=== PATIENT | male | born 2000 | race Caucasian/White ===

== ENCOUNTER 2021-09-01 17:37 | Emergency (ER) | payer SELFPAY ==
[2021-09-01 18:18] VITALS: BP 132/77; PULSE 78; RESP 20; TEMP 36.6; O2SAT 99
--- NOTE | 2021-09-01 18:25 | ED.URI ---
HPI - URI/Sore Throat General Chief Complaint: Upper Respiratory Infection Stated Complaint: throat pain Source: patient Mode of arrival: ambulatory History of Present Illness HPI Narrative: This is a 20-year-old gentleman that presents with a 2 day history of sore throat with nasal congestion and postnasal drip with no fever or chills does have tender submandibular gland with no shortness of breath no nausea vomiting. MD elicited complaint: sore throat Review of Systems Review of Systems: All systems reviewed & are unremarkable except as noted in HPI and below PMFSH Past Medical History Medical History Patient denies medical problems Exam Const: General: no acute distress Orientation/consciousness: patient oriented x3 HENMT: Head: normal to inspection Other: erythematous tonsils Eyes: Conjunctivae: conjunctivae normal Neck: Neck: normal visual inspection and lymphadenopathy Other: tender submandibular gland Chest: Chest palpation & inspection: normal inspection of the chest Resp: Effort & Inspection: normal respiratory effort Auscultation: clear to auscultation bilaterally GI: GI Palp: Yes Soft to palpation Urinary Catheter: Urinary Catheter: patent and draining Skin: General skin exam: normal color Rashes: no rashes Neuro: General: patient oriented x3 Extrem: General: normal to inspection Psych: Mental Status: mental status grossly normal Affect: normal affect Course Course Emergency Course: patient had strep performed which was negative and reviewed with patient. Vital Signs Vital signs: Vital Signs Temperature 36.6 C 09/01/21 18:18 Pulse Rate 78 09/01/21 18:18 Respiratory Rate 20 09/01/21 18:18 Blood Pressure 132/77 09/01/21 18:18 Pulse Oximetry 99 09/01/21 18:18 Temperature 36.6 C 09/01/21 18:18 Pulse Rate 78 09/01/21 18:18 Respiratory Rate 20 09/01/21 18:18 Blood Pressure 132/77 09/01/21 18:18 Pulse Oximetry 99 09/01/21 18:18 MDM - URI/Sore Throat Lab Data Labs: Lab Results 09/01/21 Range/Units 18:20 Grp A Beta Strep Ag Negative Critical Care Time Critical Care Time Critical Care Time: No Discharge Plan Discharge Clinical Impression: Pharyngitis Qualifiers: Pharyngitis/tonsillitis etiology: unspecified etiology Qualified Code(s): J02.9 - Acute pharyngitis, unspecified Patient Disposition: Home, Self-Care Condition: Stable Instructions: Antibiotic Form, Pharyngitis (ED) Additional Instructions: take medicine as prescribed and follow-up primary care physician if symptoms persist or worsen. Prescriptions: New azithromycin [Zithromax Z-Marino] 250 mg tablet See Rx Instructions .ROUTE .COMPLEX Qty: 6 RF: 0 Follow-up/Referrals: Derian,Maycol Nicholas MD [Primary Care Provider] - Time of Disposition: 18:29
[2021-09-01 18:35] VITALS: PULSE 74; RESP 20; O2SAT 100
== END 2021-09-01 18:35 | disposition home or self-care (01) ==
PROVIDERS: Emergency Provider Emergency Medicine; PCP Family Medicine
DX: J02.9 Acute pharyngitis, unspecified (principal)
CPT/HCPCS: 87081; 87880; 99283

== ENCOUNTER 2022-10-27 10:18 | Emergency (ER) | payer SELFPAY ==
[2022-10-27 10:18] VITALS: BP 146/86; PULSE 84; RESP 16; TEMP 37.3; O2SAT 98
--- NOTE | 2022-10-27 10:32 | ED.URI ---
HPI - URI/Sore Throat General Chief Complaint: Upper Respiratory Infection Stated Complaint: sore throat Time Seen by Provider: 10/27/22 10:31 Source: patient and RN notes reviewed Mode of arrival: ambulatory Limitations: no limitations History of Present Illness MD elicited complaint: fever (Subjective), cough and sore throat Onset (ago): day(s) (1) Associated symptoms: myalgias Related Data Home Medications Medication Instructions Recorded Confirmed No Home Medications 10/27/22 10/27/22 Allergies Allergy/AdvReac Type Severity Reaction Status Date / Time No Known Allergies Allergy Verified 10/27/22 10:25 [facility] Past Medical History Medical History (Updated 10/27/22 @ 11:32 by Mike Downey MD) Patient denies medical problems Surgical History Surgical History (Updated 10/27/22 @ 11:07 by Mike Downey MD) No pertinent past surgical history Exam Const: General: healthy appearing, no acute distress and alert Nutritional Appearance: well nourished Orientation/consciousness: patient oriented x3 Limitations: no limitations HENMT: Head: normal to inspection Ears: external ears normal Face/Nose/Sinus: Normal external nose present Face and sinus: normal facial exam Mouth: Yes moist mucous membranes abnormal Throat: uvula midline and posterior oropharynx abnormal edema and erythema; no exudates Eyes: Conjunctivae: conjunctivae normal Pupils: Equal, round and reactive pupils present EOM: EOMs intact bilaterally Neck: Neck: normal visual inspection Resp: Effort & Inspection: normal respiratory effort Auscultation: clear to auscultation bilaterally Cardio: Rate: regular rate Rhythm: regular rhythm GI: GI Palp: Yes Soft to palpation and No Tenderness to palpation present (GI) Auscultation: normal bowel sounds Back/Spine/Pelvis: Cervical Spine: cervical ROM normal Thoracic/Lumbar Spine: thoraco-lumbar ROM normal Skin: General skin exam: normal color Rashes: no rashes Neuro: General: patient oriented x3, moves all extremities, no focal motor deficits and CN's II-XI intact bilaterally Speech: normal speech Gait exam (Neuro): Normal gait present Extrem: General: normal to inspection and no clubbing, cyanosis or edema Psych: Mental Status: mental status grossly normal Affect: normal affect Attitude: cooperative Course Vital Signs Vital signs: Vital Signs Temperature 37.3 C 10/27/22 10:18 Pulse Rate 84 10/27/22 10:18 Respiratory Rate 16 10/27/22 10:18 Blood Pressure 146/86 H 10/27/22 10:18 Pulse Oximetry 98 10/27/22 10:18 Oxygen Delivery Room Air 10/27/22 10:18 Temperature 37.3 C 10/27/22 10:18 Pulse Rate 84 10/27/22 10:18 Respiratory Rate 16 10/27/22 10:18 Blood Pressure 146/86 H 10/27/22 10:18 Pulse Oximetry 98 10/27/22 10:18 Oxygen Delivery Room Air 10/27/22 10:18 MDM - URI/Sore Throat Differential Diagnosis Differential diagnosis: Likely upper respiratory infection, sinusitis, viral infection, influenza, pharyngitis and other ( COVID, strep pharyngitis) Lab Data Attestation: I reviewed the patient's lab results. Labs: Lab Results 10/27/22 Range/Units 10:38 Influenza A (RT-PCR) Negative (Negative) Influenza B (RT-PCR) Negative (Negative) SARS-CoV-2 RNA (RT-PCR) Negative (Negative) Group A Strep (PCR) Not detected (Negative) Discharge Plan Discharge Clinical Impression: Pharyngitis Qualifiers: Pharyngitis/tonsillitis etiology: other specified organisms Qualified Code(s): J02.8 - Acute pharyngitis due to other specified organisms Patient Disposition: Home, Self-Care Condition: Stable Instructions: Pharyngitis (ED) Additional Instructions: can use [id number] throat spray as needed. Tylenol and/or Motrin for body aches and fever. Prescriptions: No Action No Home Medications Follow-up/Referrals: UNKNOWN,DOCTOR [Primary Care Provider] - Stand Alone Form
[2022-10-27 11:11] LABS: Strep Group A RT-PCR NOT DETECTED (Negative)
[2022-10-27 11:21] LABS: Influenza A QL RT-PCR Negative (Negative); Influenza B QL RT-PCR Negative (Negative); SARS-CoV-2 RNA PCR Negative (Negative)
[2022-10-27 11:35] VITALS: BP 130/78; PULSE 88; RESP 16; TEMP 36.1; O2SAT 98
== END 2022-10-27 11:35 | disposition home or self-care (01) ==
PROVIDERS: Emergency Provider Emergency Medicine
DX: J02.8 Acute pharyngitis due to other specified organisms (principal); Z20.822 Contact with and (suspected) exposure to COVID-19
CPT/HCPCS: 87502; 87635; 87651; 99283; U0005

== ENCOUNTER 2024-01-04 13:15 | Emergency (ER) | payer SELFPAY ==
[2024-01-04 13:15] VITALS: BP 165/98; PULSE 61; RESP 18; TEMP 36.3; O2SAT 99
--- NOTE | 2024-01-04 13:21 | ED.DENTAL ---
HPI - Dental/Oral General Chief complaint: Dental/Oral Stated complaint: DENTAL PAIN Time Seen by Provider: 01/04/24 13:17 Source: patient Mode of arrival: ambulatory Limitations: no limitations History of Present Illness HPI Narrative: patient is a 23-year-old male with right lower jaw pain /dental pain for the past few days. He has a cracked tooth in the back right jaw. MD Complaint: tooth pain and tooth injury Location: Tooth # ( Thirty-two) Onset (ago): day(s) (3) Duration: constant Severity: moderate Severity scale (1-10): 5 Relieving factors: nothing Exacerbating factors: chewing, cold, heat and drinking fluids Context: history of dental caries Treatment prior to arrival: none Related Data Allergies Allergy/AdvReac Type Severity Reaction Status Date / Time No Known Allergies Allergy Verified 10/27/22 10:25 Review of Systems Review of Systems: All systems reviewed & are unremarkable except as noted in HPI and below Constitutional: Constitutional: Reports no additional constitutional complaints Eyes: Eyes: Reports no additional eye complaints ENT: Reports system reviewed and no additional complaints, except as documented Cardiovascular: Cardiovascular: Reports no additional cardiovascular complaints Respiratory: Respiratory: Reports no additional respiratory complaints Gastrointestinal: Gastrointestinal: Reports no additional gastrointestinal complaints Genitourinary: Genitourinary: Reports no additional male genitourinary complaints Musculoskeletal: Musculoskeletal: Reports no additional musculoskeletal complaints Integumentary/Breasts: Skin/Breast: Reports system reviewed and no additional complaints, except as docu Neurologic: Reports system reviewed and no additional complaints, except as documented Psychiatric: Psychiatric: Reports no additional psychiatric complaints Endocrine: Endocrine: Reports no additional endocrine complaints Hematologic/Lymphatic: Hematologic/Lymphatic: Reports no additional hematologic/lymphatic complaints Allergic/Immunologic: Allergic/Immunologic: Reports no additional allergic/immunologic complaints PMFSH Past Medical History Medical History Patient denies medical problems Surgical History Surgical History No pertinent past surgical history Exam Const: General: healthy appearing Nutritional Appearance: well nourished Orientation/consciousness: patient oriented x3 HENMT: Head: normal to inspection Ears: external ears normal Face/Nose/Sinus: Normal external nose present Other: tooth number 32 has 3/4 cracked and missing of the top of the tooth with some decay and no abscess Eyes: Conjunctivae: conjunctivae normal Pupils: Equal, round and reactive pupils present EOM: EOMs intact bilaterally Neck: Neck: normal visual inspection Chest: Chest palpation & inspection: normal inspection of the chest Resp: Effort & Inspection: normal respiratory effort and not labored Auscultation: clear to auscultation bilaterally Cardio: Rate: regular rate Rhythm: regular rhythm Heart sounds: no murmurs GI: Inspection: non-distended Auscultation: normal bowel sounds and bowel sounds present : General: Yes bladder normal to palpation Back/Spine/Pelvis: Back: no CVA tenderness Skin: General skin exam: normal color Rashes: no rashes Wounds: no wounds Neuro: General: patient oriented x3 Cranial nerves: Yes Nystagmus not present Speech: normal speech Extrem: General: normal to inspection Psych: Mental Status: mental status grossly normal Affect: normal affect Attitude: cooperative MDM - Dental/Oral MDM Narrative Medical decision making narrative: patient is a 23-year-old male with dental pain and right lower jaw pain with a fractured tooth. We will do Augmentin and Ultram. He did not want Toradol shot. Discharge Plan Discharge C
== END 2024-01-04 13:45 | disposition home or self-care (01) ==
LOC: CHSED 13:43
PROVIDERS: Emergency Provider Emergency Medicine; PCP Family Medicine
DX: R68.84 Jaw pain (principal)
CPT/HCPCS: 99283

== ENCOUNTER 2024-06-28 13:06 | Emergency (ER) | payer BC, SELFPAY ==
[2024-06-28 13:07] VITALS: BP 142/84; PULSE 99; RESP 18; TEMP 36.8; O2SAT 98
--- NOTE | 2024-06-28 13:09 | ED_ITS ---
HPI - URI/Sore Throat General Chief Complaint: Upper Respiratory Infection Stated Complaint: sore throat Time Seen by Provider: 06/28/24 13:08 Source: patient Mode of arrival: ambulatory Limitations: no limitations History of Present Illness HPI Narrative: 23-year-old nose significant past medical history presents to the ED with a 1 day history of -- sore throat/ odynophagia. No fever or chills. No sinus pain. No cough or sputum production MD elicited complaint: sore throat Onset (ago): day(s) ( 1 day) Consistency: constant Severity: mild Description of mucous: clear Able to tolerate fluids by mouth: Yes Exacerbating factors: nothing Relieving factors: nothing Associated symptoms: denies other symptoms Related Data Home Medications ?Medication ?Instructions ?Recorded ?Confirmed ?Last Taken ?Type No Home Medications 06/28/24 06/28/24 Unknown History Allergies Allergy/AdvReac Type Severity Reaction Status Date / Time No Known Allergies Allergy Verified 06/28/24 13:32 Review of Systems Review of Systems: All systems reviewed & are unremarkable except as noted in HPI and below PMFSH Past Medical History Medical History Patient denies medical problems Surgical History Surgical History No pertinent past surgical history Exam Narrative: afebrile oxygen saturation of 98% on room air Const: General: healthy appearing and no acute distress Nutritional Appearance: well nourished Orientation/consciousness: patient oriented x3 Limitations: no limitations HENMT: Head: normal to inspection Ears: external ears normal Face/Nose/Sinus: Normal external nose present Face and sinus: normal facial exam Mouth: Yes Normal oral and palatal mucosa present Throat: posterior oropharynx normal ( pharyngeal erythema) Eyes: Conjunctivae: conjunctivae normal Pupils: Equal, round and reactive pupils present EOM: EOMs intact bilaterally Direct Ophthalmoscopy: no photophobia Neck: Neck: normal visual inspection, no lymphadenopathy and no meningeal signs Chest: Chest palpation & inspection: normal inspection of the chest Resp: Effort & Inspection: normal respiratory effort Auscultation: clear to auscultation bilaterally Cardio: Rate: regular rate Rhythm: regular rhythm GI: GI Palp: Yes Soft to palpation Auscultation: normal bowel sounds : General: Yes no CVA tenderness Back/Spine/Pelvis: Back: no CVA tenderness Skin: General skin exam: normal color Rashes: no rashes Wounds: no wounds Neuro: General: patient oriented x3, moves all extremities, no meningeal signs, no focal motor deficits and CN's II-XI intact bilaterally Cranial nerves: Yes Nystagmus not present Speech: normal speech Gait exam (Neuro): Normal gait present Extrem: General: normal to inspection and no clubbing, cyanosis or edema Psych: Mental Status: mental status grossly normal Affect: normal affect Attitude: cooperative Course Course Emergency Course: pharyngitis-- Patient tested negative for influenza /RSV / COVID/ strep. Vital Signs Vital signs: Vital Signs Temperature 36.8 C 06/28/24 13:07 Pulse Rate 99 06/28/24 13:07 Respiratory Rate 18 06/28/24 13:07 Blood Pressure 142/84 H 06/28/24 13:07 Pulse Oximetry 98 06/28/24 13:07 Oxygen Delivery Room Air 06/28/24 13:07 Temperature 36.8 C 06/28/24 13:07 Pulse Rate 99 06/28/24 13:07 Respiratory Rate 18 06/28/24 13:07 Blood Pressure 142/84 H 06/28/24 13:07 Pulse Oximetry 98 06/28/24 13:07 Oxygen Delivery Room Air 06/28/24 13:07 MDM - URI/Sore Throat MDM Narrative Medical decision making narrative: Pharyngitis Differential Diagnosis Differential diagnosis: Likely upper respiratory infection Lab Data Attestation: I reviewed the patient's lab results. Labs: Lab Results 06/28/24 Range/Units 13:13 Influenza A (RT-PCR) Negative (Negative) Influenza B (RT-PCR) Negative (Negative) RSV (RT-PCR) Negative (Negative) SARS-CoV-2 RNA (RT-PCR) Negative (Negative) Group A Strep (PCR) Not detected (Negative) Discharge Plan Discharge Clinical Impression: Pharyngitis Patient Disposition: Home, Self-Care Condition: Stable Instructions: Antibiotic Form, Pharyngitis (ED) Patient Language: Upper Sorbian Prescriptions: No Action No Home Medications Follow-up/Referrals: Derian,Maycol Nicholas MD [Primary Care Provider] - Time of Disposition: 14:05
--- NOTE | 2024-06-28 13:36 | PC.NURSE ---
Covid culture sent to lab at 13:18
[2024-06-28 13:49] LABS: Strep Group A RT-PCR NOT DETECTED (Negative)
[2024-06-28 13:57] LABS: SARS-CoV-2 RNA PCR Negative (Negative)
[2024-06-28 13:58] LABS: Influenza A QL RT-PCR Negative (Negative); Influenza B QL RT-PCR Negative (Negative); RSV RNA, RT-PCR Negative (Negative)
[2024-06-28 14:12] VITALS: BP 132/86; PULSE 92; RESP 18; TEMP 36.9; O2SAT 98
== END 2024-06-28 14:20 | disposition home or self-care (01) ==
PROVIDERS: Emergency Provider Internal Medicine Critical Care Medicine; PCP Family Medicine
DX: J02.9 Acute pharyngitis, unspecified (principal); Z20.822 Contact with and (suspected) exposure to COVID-19
CPT/HCPCS: 87637; 87651; 99283

== ENCOUNTER 2024-08-28 16:32 | Emergency (ER) | payer BC, SELFPAY ==
--- NOTE | 2024-08-28 16:36 | ED_ITS ---
HPI - URI/Sore Throat General Chief Complaint: Upper Respiratory Infection Stated Complaint: sore throat Time Seen by Provider: 08/28/24 16:35 Source: patient Mode of arrival: ambulatory Limitations: no limitations History of Present Illness HPI Narrative: Patient is a 23-year-old male with no significant past medical history that presents today for sore throat. Patient has had a sore throat for the last few days now his says is got worse. He has a minor cough of [place] just a sore throat it hurts to swallow. He also has a erythematous throat with white spots in the back of throat. MD elicited complaint: sore throat Onset (ago): day(s) Consistency: constant Severity: moderate Able to tolerate fluids by mouth: Yes Exacerbating factors: swallowing Relieving factors: nothing Associated symptoms: denies other symptoms Treatments prior to arrival: none Related Data Allergies Allergy/AdvReac Type Severity Reaction Status Date / Time No Known Allergies Allergy Verified 08/28/24 16:40 Review of Systems Review of Systems: All systems reviewed & are unremarkable except as noted in HPI and below Constitutional: Constitutional: Reports no additional constitutional complaints Eyes: Eyes: Reports no additional eye complaints ENT: Reports system reviewed and no additional complaints, except as documented Cardiovascular: Cardiovascular: Reports no additional cardiovascular complaints Respiratory: Respiratory: Reports no additional respiratory complaints Gastrointestinal: Gastrointestinal: Reports no additional gastrointestinal complaints Genitourinary: Genitourinary: Reports no additional male genitourinary complaints Musculoskeletal: Musculoskeletal: Reports no additional musculoskeletal complaints Integumentary/Breasts: Skin/Breast: Reports system reviewed and no additional complaints, except as docu Neurologic: Reports system reviewed and no additional complaints, except as documented Psychiatric: Psychiatric: Reports no additional psychiatric complaints Endocrine: Endocrine: Reports no additional endocrine complaints Hematologic/Lymphatic: Hematologic/Lymphatic: Reports no additional hematologic/lymphatic complaints Allergic/Immunologic: Allergic/Immunologic: Reports no additional allergic/immunologic complaints PMFSH Past Medical History Medical History Patient denies medical problems Surgical History Surgical History No pertinent past surgical history Exam Const: General: healthy appearing Nutritional Appearance: well nourished Orientation/consciousness: patient oriented x3 HENMT: Head: normal to inspection Ears: external ears normal Face/Nose/Sinus: Normal external nose present Face and sinus: normal facial exam Mouth: Yes Normal oral and palatal mucosa present Eyes: Conjunctivae: conjunctivae normal Pupils: Equal, round and reactive pupils present EOM: EOMs intact bilaterally Neck: Neck: normal visual inspection Chest: Chest palpation & inspection: normal inspection of the chest Resp: Effort & Inspection: normal respiratory effort Auscultation: clear to auscultation bilaterally Cardio: Rate: regular rate Rhythm: regular rhythm Heart sounds: Murmur heart sound present GI: GI Palp: Yes Soft to palpation Auscultation: normal bowel sounds Back/Spine/Pelvis: Back: no CVA tenderness Skin: General skin exam: normal color Rashes: no rashes Wounds: no wounds Neuro: General: patient oriented x3 Cranial nerves: Yes Nystagmus not present Speech: normal speech Gait exam (Neuro): Normal gait present Extrem: General: normal to inspection Psych: Mental Status: mental status grossly normal Affect: normal affect Attitude: cooperative Course Vital Signs Vital signs: Vital Signs Temperature 97.8 F 08/28/24 16:40 Pulse Rate 77 08/28/24 16:40 Respiratory Rate 17 08/28/24 16:40 Blood Pressure 125/76 08/28/24 16:40 Pulse Oximetry 98 08/28/24 16:40 Oxygen Delivery Room Air 08/28/24 16:40 Temperature 97.8 F 08/28/24 16:40 Pulse Rate 77 08/28/24 16:40 Respiratory Rate 17 08/28/24 16:40 Blood Pressure 125/76 08/28/24 16:40 Pulse Oximetry 98 08/28/24 16:40 Oxygen Delivery Room Air 08/28/24 16:40 MDM - URI/Sore Throat MDM Narrative Medical decision making narrative: Patient has had a sore throat for the past few days now. He has erythemetous posterior pharynx and spots/possible stones on the left side. Most likely he has strept throat or possible mono. Will swab for strep covid rsv and flu. Will base treatment on results but will most likely start on antibiotics. Differential Diagnosis Differential diagnosis: Likely upper respiratory infection and pharyngitis Medical Records Attestation: I reviewed the patient's medical records. Lab Data Attestation: I reviewed the patient's lab results. Labs: Lab Results 03/24/25 Range/Units 16:37 Influenza A (RT-PCR) Negative (Negative) Influenza B (RT-PCR) Negative (Negative) RSV (RT-PCR) Negative (Negative) SARS-CoV-2 RNA (RT-PCR) Negative (Negative) Group A Strep (PCR) Detected A (Negative) Discharge Plan Discharge Clinical Impression: Strep pharyngitis Patient Disposition: Home, Self-Care Condition: Stable Instructions: Antibiotic Form, Pharyngitis (ED) Patient Language: Kiswahili Prescriptions: New amoxicillin-pot clavulanate 875-125 mg tablet 1 tablet PO Q12H Qty: 20 0RF Follow-up/Referrals: Derian,Maycol Nicholas MD [Primary Care Provider] - Time of Disposition: 17:51
--- NOTE | 2024-08-28 16:39 | PC.NURSE ---
Covid culture sent to lab
[2024-08-28 16:40] VITALS: BP 125/76; PULSE 77; RESP 17; TEMP 36.6; O2SAT 98
[2024-08-28 17:20] LABS: Strep Group A RT-PCR DETECTED (Negative)
[2024-08-28 17:34] LABS: Influenza A QL RT-PCR Negative (Negative); Influenza B QL RT-PCR Negative (Negative); RSV RNA, RT-PCR Negative (Negative); SARS-CoV-2 RNA PCR Negative (Negative)
[2024-08-28 17:44] VITALS: BP 139/87; PULSE 72; RESP 16; TEMP 36.5; O2SAT 97
[2024-08-28] MEDS: AMOXICILLIN/CLAVULANATE K 875-125 MG TAB 1 TABLET PO (17:53)
[2024-08-28 17:57] VITALS: BP 139/87; PULSE 72; RESP 16; TEMP 36.5; O2SAT 97
== END 2024-08-28 17:57 | disposition home or self-care (01) ==
PROVIDERS: Emergency Provider Family Medicine; PCP Family Medicine
DX: J02.0 Streptococcal pharyngitis (principal); Z20.822 Contact with and (suspected) exposure to COVID-19
CPT/HCPCS: 87637; 87651; 99283; A9270

== ENCOUNTER 2024-09-11 16:21 | Emergency (ER) | payer BC, SELFPAY ==
--- NOTE | ~2024-09-11 | CT_ITS ---
CLINICAL INDICATION: Right upper quadrant pain COMPARISON: None. TECHNIQUE: Multiple contiguous axial images of the abdomen and pelvis were performed without the admi nistration of intravenous contrast The dose-length product (DLP) was 462.35 mGy-cm. Automated exposure control and iterative reconstruction technique were employed. FINDINGS/OBSERVATIONS: Visualized lower thorax: The bilateral lung bases are clear. The heart is of normal size, without pericardial effusion. Small hiatal hernia is present. Liver: The liver demonstrates homogeneous attenuation and is not enlarged. Gallbladder and biliary system: The gallbladder is decompressed, and otherwise unremarkable. Pancreas: Limited evaluation of the pancreas secondary to the lack of intravenous contrast. Spleen: The spleen demonstrates homogeneous attenuation and is not enlarged . Kidneys: The bilateral kidneys are unremarkable, without hydronephrosis or renal calculi. Adrenal glands: Unremarkable. Gastrointestinal tract: Fecal stasis within the colon. Appendix: The air-filled appendix is of normal caliber (axial series, images 109 through 120) Vasculature: Unremarkable. Lymph nodes: Limited evaluation without intravenous contrast. Pelvic structures: The bladder is only minimally distended, and otherwise unremarkable. The prostate gland is not enlarged. Body wall and musculoskeletal: No significant degenerative disease within the lower thoracic or lumbosacral spine. IMPRESSION: No acute intra-abdominal pathology, as detailed above. Reviewed, dictated and finalized at location A.
[2024-09-11 16:22] VITALS: BP 145/97; PULSE 77; RESP 18; TEMP 36.8; O2SAT 100
--- NOTE | 2024-09-11 16:31 | ED_ITS ---
HPI - Abdominal Pain General Chief Complaint: Abdominal Pain Stated Complaint: abdominal pain, vomiting Time Seen by Provider: 09/11/24 16:31 Source: patient Mode of arrival: ambulatory Limitations: no limitations History of Present Illness HPI narrative: 23 years old white male drove himself to the emergency room because of pain at the right upper quadrant started 2 days ago, intermittent, got worse this morning. vomited twice today. Reports some loose stool at least twice today. Patient denies any fever or chills, history of abdominal surgery, or taking any medicine at home Or radiation of pain. Patient does not smoke or drink or uses drugs. Related Data Allergies Allergy/AdvReac Type Severity Reaction Status Date / Time No Known Allergies Allergy Verified 09/11/24 16:22 Review of Systems 2 Review of Systems: All systems reviewed & are unremarkable except as noted in HPI and below PMFSH Past Medical History Medical History Patient denies medical problems Surgical History Surgical History No pertinent past surgical history Exam 2 Narrative: General appearance: Well-developed, well-nourished Skin: Normal color Head: Normocephalic, nontraumatic Eyes: Clear conjunctiva ENT: Oropharynx normal, ears normal, nose normal Neck: Supple, nontender Chest and respiratory: Airway patent, no respiratory distress, no accessory muscle use Heart: Regular rate/rhythm Abdomen: Soft, nontender, no organomegaly, quiet bowel sounds Vascular: Normal peripheral pulses, normal capillary refill. Musculoskeletal: Normal range of motion, nontender back Neurologic: Alert and oriented ?3, [employer] is normal as tested, no gross motor deficit Course Vital Signs Vital signs: Vital Signs Temperature 36.8 C 09/11/24 16:22 Pulse Rate 77 09/11/24 16:22 Respiratory Rate 18 09/11/24 16:22 Blood Pressure 145/97 H 09/11/24 16:22 Pulse Oximetry 100 09/11/24 16:22 Oxygen Delivery Room Air 09/11/24 16:22 Temperature 36.8 C 09/11/24 16:22 Pulse Rate 77 09/11/24 16:22 Respiratory Rate 18 09/11/24 16:22 Blood Pressure 145/97 H 09/11/24 16:22 Pulse Oximetry 100 09/11/24 16:22 Oxygen Delivery Room Air 09/11/24 16:22 MDM - Abdominal Pain MDM Narrative Medical decision making narrative: Patient presents with right upper quadrant pain for the last 2 days Vital signs showing blood pressure 145/97, otherwise within normal limit Physical examination consistent with slight tenderness right upper quadrant otherwise insignificant findings Differential diagnosis include cholecystitis, diverticulitis, colitis, urinary tract infection, abdominal wall muscle pain VIRAL GASTROENTERITIS A CBC, CMP, lipase showed NO SIGNIFICANT ABNORMALITIES Urinalysis showed NO EVIDENCE OF INFECTION CT abdomen and pelvis WITHOUT CONTRAST SHOWED NO ACUTE ABNORMALITIES DIAGNOSIS ABDOMINAL PAIN OF UNKNOWN ETIOLOGY , VIRAL INFECTION IS A POSSIBILITY DISCHARGED HOME BENTYL, TYLENOL, IBUPROFEN NEEDED. DISCHARGE THE PT WAS DISCHARGED TO HOME.THE PT,S CONDITION UPON DISCHARGE WAS FAIR,EDUCATION WAS PROVIDED TO THE PT IN REFERENCE TO THE FINAL IMPRESSION,DISCHARGE STUDY RESULTS,TREATMENT,PROGNOSIS AND NEED FOR FOLLOW UP . Differential Diagnosis Differential diagnosis: Likely small bowel obstruction and other ( ABOVE) Medical Records Attestation: I reviewed the patient's medical records. Lab Data Attestation: I reviewed the patient's lab results. 09/11/24 16:43 09/11/24 16:43 Labs: Lab Results 09/11/24 Range/Units 16:43 WBC 7.7 (4.8-10.8) K/mm3 RBC 4.89 (4.70-6.10) M/mm3 Hgb 14.6 (14.0-18.0) g/dL Hct 44.0 (40.0-54.0) % MCV 90.0 (78.0-102.0) fL MCH 29.9 (27.0-31.0) pg MCHC 33.2 (32-36) g/dL RDW 12.0 (11.6-14.4) % Plt Count 257 (150-420) K/mm3 MPV 9.1 (8.7-11.0) fl Immature Gran % (Auto) 0.4 H (0.0-0.0) % Neut % (Auto) 50.5 (50.0-70.0) % Lymph % (Auto) 30.4 (18.0-42.0) % [place] % (Auto) 14.4 H (2.0-11.0) % Eos % (Auto) 3.9 (1.0-6.0) % Baso % (Auto) 0.4 (0.0-1.0) % Lymph # (Auto) 2.34 (1.10-4.50) K/mm3 [place] # (Auto) 1.11 H (0.10-0.90) K/mm3 Eos # (Auto) 0.30 (0.02-0.50) K/mm3 Baso # (Auto) 0.03 (0.00-0.10) K/mm3 Abs Immat Gran (auto) 0.03 H (0.00-0.00) K/mm3 Absolute Neuts (auto) 3.90 (1.70-7.20) K/mm3 Absolute Nucleated RBC 0.00 (0.00-0.00) K/mm3 Nucleated RBC % 0.0 (0-0.0) % Sodium 141 (136-145) mmol/L Potassium 4.6 (3.5-5.1) mmol/L Chloride 103 (98-108) mmol/L Carbon Dioxide 31 (21-32) mmol/L Anion Gap 7 (4-12) mmol/L BUN 16 (7-18) mg/dL Creatinine 0.87 (0.70-1.30) mg/dL Estim Creat Clear Calc 127 ml/min Estimated GFR > 60 (59 - ) Glucose 89 (70-99) mg/dL Calculated Osmolality 292 (285-295) mOsm/kg Calcium 9.6 (8.5-10.1) mg/dL Total Bilirubin 0.4 (0.00-1.00) mg/dL AST 19 (15-37) U/L ALT 40 (16-63) U/L Alkaline Phosphatase 145 H (46-116) U/L Total Protein 8.1 (6.4-8.2) g/dL Albumin 3.7 (3.4-5.0) g/dL Lipase 23 (16-77) U/L Urine Color Light yellow (Yellow) Urine Appearance Clear (Clear) Urine pH 6.5 (5.0-8.0) Ur Specific [place] 1.020 (1.010-1.020) Urine Protein Negative (Negative) Urine Glucose (UA) Negative (Negative) Urine Ketones Negative (Negative) Ur Blood (Man) Negative (Negative) Urine Nitrate Negative (Negative) Urine Bilirubin Negative (Negative) Urine Urobilinogen 1.0 (0.2-1.0) mg/dL Leukocyte Esterase Rfl Negative (Negative) RICH/UL Imaging Data Radiologist's impression: ITS Impressions Abdomen/Pelvis CT 09/11/24 17:44 IMPRESSION: No acute intra-abdominal pathology, as detailed above. Critical Care Time Critical Care Time Critical Care Time: No Discharge Plan Discharge Clinical Impression: Abdominal pain Patient Disposition: Home Condition: Stable Instructions: Abdominal Pain (ED) Additional Instructions: RETURN IF SYMPTOMS ARE WORSENING , CALL YOUR FAMILY PHYSICIAN FOR APPOINTMENT, TAKE TYLENOL IBUPROFEN NEEDED FOR ACHES AND PAIN, CONTINUE HOME MEDICATIONS. Patient Language: Uzbek Prescriptions: New dicyclomine 20 mg tablet 20 mg PO QID PRN (Reason: abdominal pain) Qty: 20 0RF No Action amoxicillin-pot clavulanate 875-125 mg tablet 1 tablet PO Q12H Qty: 20 0RF Follow-up/Referrals: Derian,Maycol Nicholas MD [Primary Care Provider] - Stand Alone Forms: Work/School Release IP
--- NOTE | 2024-09-11 16:32 | PC.NURSE ---
Patient refused IV and Iv medication, states his pain is not that bad and his nausea is tolerable, ERP made aware.
[2024-09-11 16:49] LABS: Basophils Absolute Auto 0.03 K/mm3 (0.00-0.10); Basophils Percent Auto 0.4 % (0.0-1.0); Eosinophils Percent Auto 3.9 % (1.0-6.0); Hemoglobin 14.6 g/dL (14.0-18.0); Immature Granulocyte Absolute 0.03 K/mm3 (0.00-0.00); Immature Granulocyte Percent A 0.4 % (0.0-0.0); Lymphocytes Absolute Auto 2.34 K/mm3 (1.10-4.50); Lymphocytes Percent Auto 30.4 % (18.0-42.0); Mean Corpuscular HGB Conc 33.2 g/dL (32-36); Mean Corpuscular Hemoglobin 29.9 pg (27.0-31.0); Mean Platelet Volume 9.1 fl (8.7-11.0); Monocytes Absolute Auto 1.11 K/mm3 (0.10-0.90); Monocytes Percent Auto 14.4 % (2.0-11.0); Neutrophils Percent Auto 50.5 % (50.0-70.0); Platelet Count Result 257 K/mm3 (150-420); Red Blood Count 4.89 M/mm3 (4.70-6.10); White Blood Count 7.7 K/mm3 (4.8-10.8)
[2024-09-11 16:50] LABS: Add Urine Microscopic? NO; Appearance Urine Clear (Clear); Bilirubin Urine Negative (Negative); Blood Urine Negative (Negative); Color Urine Light Yellow (Yellow); Glucose Urine UA Negative (Negative); Ketones Urine Negative (Negative); Leukocyte Esterase Ur Negative LEU/UL (Negative); Nitrate Urine Negative (Negative); Protein Urine Negative (Negative); pH Urine 6.5 (5.0-8.0)
[2024-09-11 17:00] VITALS: BP 138/85; PULSE 72; RESP 18; O2SAT 98
[2024-09-11 17:24] LABS: Alanine Aminotransferase 40 U/L (16-63); Albumin Level 3.7 g/dL (3.4-5.0); Alkaline Phosphatase 145 U/L (46-116); Anion Gap 7 mmol/L (4-12); Aspartate Amino Transferase 19 U/L (15-37); Bilirubin,Total 0.4 mg/dL (0.00-1.00); Blood Urea Nitrogen 16 mg/dL (7-18); Calcium 9.6 mg/dL (8.5-10.1); Carbon Dioxide 31 mmol/L (21-32); Chloride 103 mmol/L (98-108); Estimated CRCL calculation 127 ml/min; Estimated Glomerular Filt Rate > 60; Glucose 89 mg/dL (70-99); Lipase 23 U/L (16-77); Osmolality Calculated 292 mOsm/kg (285-295); Potassium 4.6 mmol/L (3.5-5.1); Sodium 141 mmol/L (136-145); Total Protein 8.1 g/dL (6.4-8.2)
[2024-09-11 17:30] VITALS: BP 142/93; PULSE 70; RESP 16; O2SAT 99
[2024-09-11 18:00] VITALS: BP 150/99; PULSE 76; RESP 17; O2SAT 98
[2024-09-11 18:11] VITALS: BP 150/99; PULSE 76; RESP 17; TEMP 36.7; O2SAT 98
== END 2024-09-11 18:11 | disposition home or self-care (01) ==
PROVIDERS: Emergency Provider Emergency Medicine; PCP Family Medicine
DX: R10.11 Right upper quadrant pain (principal)
CPT/HCPCS: 36415; 74176; 80053; 81003; 83690; 85025; 99284

== ENCOUNTER 2025-03-07 11:36 | Emergency (ER) | payer SELFPAY ==
--- NOTE | ~2025-03-07 | XR_ITS ---
EXAMINATION: XR abdomen obstructive series, 03/07/2025 13:30 CDT HISTORY: pain/diarrhea COMPARISON: No comparisons available. Technique: 3 view. Findings: Moderate fecal content, no dilated bowel loops No free air. No abnormal calcifications No acute osseous abnormality. Impression: 1. No acute abnormality. Reviewed, dictated and finalized at location P. Impression: 1. No acute abnormality.
--- NOTE | 2025-03-07 11:52 | ED_ITS ---
HPI - Nausea/Vomiting/Diarrhea General Chief complaint: Nausea/Vomiting/Diarrhea Stated complaint: Diarrhea Time Seen by Provider: 03/07/25 11:51 Source: patient Mode of arrival: ambulatory Limitations: no limitations History of Present Illness HPI Narrative: Patient is a 24-year-old male with nausea vomiting and diarrhea for the past day. He drank the water that was supposed to be boiled according to the local authorities for the past few days. MD elicited complaint: nausea, vomiting and diarrhea Pertinent past history: other (None) Onset (ago): day(s) (1) Description of vomiting: watery Description of diarrhea: watery Associated nausea: Yes Associated abdominal pain: No Location of pain: none Radiation: does not radiate Pain consistency: other (None) Severity: mild Pain scale (0-10): 0 Quality: other (None) Exacerbating factors: none Relieving factors: none Context: other (Patient is a 1 day history of nausea vomiting and diarrhea) Associated symptoms: denies other symptoms Treatment prior to arrival: none Related Data Allergies Allergy/AdvReac Type Severity Reaction Status Date / Time No Known Allergies Allergy Verified 03/07/25 13:04 Review of Systems Review of Systems: All systems reviewed & are unremarkable except as noted in HPI and below Constitutional: Constitutional: Reports no additional constitutional complaints Eyes: Eyes: Reports no additional eye complaints ENT: Reports system reviewed and no additional complaints, except as documented Cardiovascular: Cardiovascular: Reports no additional cardiovascular complaints Respiratory: Respiratory: Reports no additional respiratory complaints Gastrointestinal: Gastrointestinal: Reports no additional gastrointestinal complaints Genitourinary: Genitourinary: Reports no additional male genitourinary complaints Musculoskeletal: Musculoskeletal: Reports no additional musculoskeletal complaints Integumentary/Breasts: Skin/Breast: Reports system reviewed and no additional complaints, except as docu Neurologic: Reports system reviewed and no additional complaints, except as documented Psychiatric: Psychiatric: Reports no additional psychiatric complaints Endocrine: Endocrine: Reports no additional endocrine complaints Hematologic/Lymphatic: Hematologic/Lymphatic: Reports no additional hematologic/lymphatic complaints Allergic/Immunologic: Allergic/Immunologic: Reports no additional allergic/immunologic complaints PMFSH Past Medical History Medical History Patient denies medical problems Surgical History Surgical History No pertinent past surgical history Exam Const: General: healthy appearing Nutritional Appearance: well nourished Orientation/consciousness: patient oriented x3 HENMT: Head: normal to inspection Ears: external ears normal Face/Nose/Sinus: Normal external nose present Eyes: Conjunctivae: conjunctivae normal Cornea: corneas normal Pupils: Equal, round and reactive pupils present Neck: Neck: normal visual inspection Chest: Chest palpation & inspection: normal inspection of the chest Resp: Effort & Inspection: normal respiratory effort and not labored Auscultation: clear to auscultation bilaterally and no crackles Cardio: Rate: regular rate Rhythm: regular rhythm Heart sounds: no murmurs GI: Inspection: non-distended GI Palp: Yes Soft to palpation and No Tenderness to palpation present (GI) Auscultation: normal bowel sounds : General: Yes bladder normal to palpation Back/Spine/Pelvis: Back: no CVA tenderness Skin: General skin exam: normal color Rashes: no rashes Wounds: no wounds Neuro: General: patient oriented x3, moves all extremities and no meningeal signs Extrem: General: normal to inspection Psych: Mental Status: mental status grossly normal Affect: normal affect Attitude: cooperative Course Vital Signs Vital signs: Vital Signs Temperature 36.8 C 03/07/25 13:05 Pulse Rate 90 03/07/25 13:05 Respiratory Rate 18 03/07/25 13:05 Blood Pressure 156/93 H 03/07/25 13:05 Pulse Oximetry 99 03/07/25 13:05 Oxygen Delivery Room Air 03/07/25 13:05 Temperature 36.8 C 03/07/25 14:29 Pulse Rate 71 03/07/25 14:29 Respiratory Rate 18 03/07/25 14:29 Blood Pressure 132/88 03/07/25 14:29 Pulse Oximetry 99 03/07/25 14:29 Oxygen Delivery Room Air 03/07/25 14:29 MDM - Nausea/Vomiting/Diarrhea MDM Narrative Medical decision making narrative: Patient is a 24-year-old male with nausea vomiting and diarrhea. Check x-ray. Imaging Data Attestation: I personally reviewed and interpreted this imaging study as follows: Radiologist's impression: Abdomen acute series x-ray is negative for acute process Discharge Plan Discharge Clinical Impression: Acute infectious diarrhea Patient Disposition: Home Condition: Stable Instructions: Antibiotic Form, Acute Diarrhea (ED) Patient Language: Montenegrin Prescriptions: New azithromycin 250 mg tablet See Rx Instructions .ROUTE .COMPLEX Qty: 6 0RF Rx Instructions: For 250 mg dose pack: take 500 mg today (day 1), then 250 mg for 4 days (days 2-5) Follow-up/Referrals: Derian,Maycol Nicholas MD [Primary Care Provider] Stand Alone Forms: Work/School Release IP Time of Disposition: 13:21
[2025-03-07 13:05] VITALS: BP 156/93; PULSE 90; RESP 18; TEMP 36.8; O2SAT 99
[2025-03-07 14:29] VITALS: BP 132/88; PULSE 71; RESP 18; TEMP 36.8; O2SAT 99
== END 2025-03-07 14:43 | disposition home or self-care (01) ==
PROVIDERS: Emergency Provider Emergency Medicine; PCP Family Medicine
DX: A09 Infectious gastroenteritis and colitis, unspecified (principal)
CPT/HCPCS: 74019; 99283